=== PATIENT | female | born 1950 | race Caucasian/White ===

== ENCOUNTER 2023-06-28 05:47 | Day surgery (SDC) | payer MEDICARE, OTHER ==
[~2023-06-28] VITALS: Ht 170.2 cm; Wt 128.0 kg
[2023-06-28] VITALS (17 sets, daily range): BP systolic 85–147; BP diastolic 49–83
[~2023-06-28 05:47] MED LIST: ATOR20 PO; CO Q10100 MG PO; Calcium Carbon500 MG PO; DOXE50 PO; EUTHYROX50 MCG PO; HYDCHL25 PO; KRILL OIL500 MG PO; LOSHYD; MELO7.5; METR59TL TOP; MULVITA PO; NASACORT10.8 ML; OMEP20ER PO; PRED20 PO; TELM40 PO; VITAMIN D310 MC4 PO; Vitamin B Comple1 EA PO
[2023-06-28] MEDS ORDERED: Chlorhexidine Mouth Care 15 ML UDC MT SCH (06:30)
[2023-06-28] MEDS ORDERED: OxyCODONE HCL 10 MG TABCR PO SCH (06:30)
[2023-06-28] MEDS ORDERED: Ropivacaine 0.5% HCl/Pf 123.125 MG,EPINEPHrine HCL 0.25 MG,Ketorolac Tromethamine 15 MG... INFIL SCH (06:30)
[2023-06-28] MEDS ORDERED: Lactated Ringer's 1,000 ML IV SCH ×2 (06:30→08:15)
[2023-06-28] MEDS ORDERED: Acetaminophen 500 MG Tab PO SCH ×2 (06:30→16:00)
[2023-06-28] MEDS ORDERED: CeFAZolin Sodium 3,000 MG in NS 100 ML IV SCH (06:30)
[2023-06-28] MEDS ORDERED: Tranexamic Acid 100 ML IV SCH (06:38)
[2023-06-28] MEDS ORDERED: Sodium Phosphate 10 MM in Dextrose 5% 250 ML IV STA (06:40)
--- NOTE | 2023-06-28 06:54 | NUR ---
Wheelchaired into Day Surgery. History, Chart, Medications and Allergies reviewed before start of procedure. Pre-Op teaching done. Pt verbalizes understanding.
[2023-06-28] MEDS ORDERED: FentaNYL Citrate 50 MCG/ML 2 ML Injection ONE (07:13)
[2023-06-28] MEDS ORDERED: propofoL 60 ML IV ONE (07:13)
[2023-06-28] MEDS ORDERED: Promethazine HCl 25 MG Tab PO PRN (08:10)
[2023-06-28] MEDS ORDERED: HYDROmorphone HCl/Pf 1MG SYR IV PRN (08:10)
[2023-06-28] MEDS ORDERED: Bisacodyl 10 MG Supp PR PRN (08:10)
[2023-06-28] MEDS ORDERED: DiphenhydrAMINE HCL 25 MG Cap PO PRN (08:10)
[2023-06-28] MEDS ORDERED: Ondansetron HCl 2 MG / ML 2ML Vial IV PRN (08:15)
[2023-06-28] MEDS ORDERED: Magnesium Hydroxide Conc 10 ML UDC PO PRN (08:15)
[2023-06-28] MEDS ORDERED: OxyCODONE HCL 5 MG TAB PO PRN ×2 (08:15)
[2023-06-28] MEDS ORDERED: Metoclopramide HCl 5MG / ML 2ML Vial IV PRN (08:15)
[2023-06-28] MEDS ORDERED: propofoL 40 ML IV ONE (08:31)
[2023-06-28] MEDS ORDERED: ePHEDrine Sulfate 50 MG/ML 1ML Injection ONE (08:41)
[2023-06-28] MEDS ORDERED: Multivitamins 1 Tab PO SCH (09:00)
[2023-06-28] MEDS ORDERED: Ondansetron HCl 2 MG / ML 2ML Vial ONE (09:16)
[2023-06-28] MEDS ORDERED: Dexamethasone Sod Phos 10 MG/ML 1ML VIAL ONE (09:16)
[2023-06-28] MEDS ORDERED: Phenylephrine HCl 100 MCG/ML-NS 10MLSYR (1MG/10ML) ONE (09:16)
--- NOTE | 2023-06-28 10:30 | NUR ---
ARRIVAL TO UNIT. PT ARRIVED TO THE ROOM FROM PACU AT APPROXIMATELY 1025. UPON ARRIVAL PT DENIED PAIN, SHE WAS ABLE TO MOVE HER BLE BUT REPORTED DECREASED SENSATION R/T SPINAL ANESTHESIA. CALL LIGHT PLACED WITHIN REACH.
[2023-06-28] MEDS ORDERED: Ketorolac Tromethamine 15mg Vial IV SCH (12:00)
--- NOTE | 2023-06-28 13:30 | NUR ---
BEDSIDE REPORT GIVEN TO LOI BREAUX. PT ALERT AND ORIENTED DURING REPORT. PT RATED PAIN AT 4/10 AND STATED PAIN WAS TOLERABLE. PT TOLERATING PO. CALL LIGHT WITHIN REACH.
[2023-06-28] MEDS ORDERED: CeFAZolin Sodium 2,000 MG in NS 100 ML IV SCH (15:40)
--- NOTE | 2023-06-28 18:53 | NUR ---
SHIFT SUMMARY PT A&OX4, VERY PLEASANT. POD 0, LTK, AQUACELL C/D/I, POLAR PACK IN PLACE, PT UP AMB IN [facility] W/ THERAPY AND STAFF. AMB TO BATHROOM W/ USE OF GB AND FWW, TOLERATING WELL. PT REPORTS SON TO STAY W/ HER FOR 2 WEEKS IF NEEDED. PT TOLERATING OXY X2 PRN FOR PAIN. CALL LIGHT W/IN REACH. NO ACUTE CHANGES THIS SHIFT.
[2023-06-28] MEDS ORDERED: Doxepin HCL 50 MG CAP PO SCH (21:00)
[2023-06-28] MEDS ORDERED: Cholecalciferol 1000 Unit Tablet (=25MCG) PO SCH (21:00)
[2023-06-28] MEDS ORDERED: Atorvastatin 10 MG Tab PO SCH (21:00)
[2023-06-28] MEDS ORDERED: Docusate Sodium 100 MG Cap PO SCH (21:00)
[2023-06-28] MEDS ORDERED: Doxepin HCL 25 MG CAP PO SCH (21:00)
[2023-06-29 04:51] LABS: BASOPHILS ABSOLUTE AUTO 0.03 K/mm3 (0.00-0.23); BASOPHILS PERCENT AUTO 0 % (0-2); EOSINOPHILS PERCENT AUTO 0 % (0-6); Hematocrit 35.1 % (33.0-51.0); Hemoglobin 11.5 g/dL (11.5-16.0); IMMATURE GRAN ABSOLUTE AUTO 0.08 K/mm3 (0.00-0.10); IMMATURE GRAN PERCENT AUTO 1 % (0-1); LYMPHOCYTES ABSOLUTE AUTO 1.02 K/mm3 (0.84-5.20); LYMPHOCYTES PERCENT AUTO 6 % (21-46); MONOCYTES ABSOLUTE AUTO 1.31 K/mm3 (0.16-1.47); MONOCYTES PERCENT AUTO 8 % (4-13); Mean Corpuscular HGB 27.3 pg (26.0-34.0); Mean Corpuscular HGB Conc 32.8 g/dL (31.5-36.5); Mean Corpuscular Volume 83 fL (80-100); Mean Platelet Volume 10.9 fL (9.1-12.4); NEUTROPHILS ABSOLUTE AUTO 14.31 K/mm3 (1.96-9.15); NEUTROPHILS PERCENT AUTO 85 % (41-73); Platelet Count 206 K/mm3 (150-400); RDW Coefficient Variation 14.6 % (11.7-14.2); RDW Standard Deviation 43.8 fL (35.1-46.3); Red Blood Cell Count 4.21 M/mm3 (3.80-5.20); White Blood Cell Count 16.75 K/mm3 (4.00-11.30)
[2023-06-29 05:06] VITALS: BP 124/70
--- NOTE | 2023-06-29 05:12 | NUR ---
SHIFT SUMMARY POD1 L TKA. AQUACEL REMAINS C/D/I. SENSATION AND CIRCULATION REMAIN INTACT IN LLE. VSS. PT SLEPT ON AND OFF T/O THE NIGHT. AMBULATED TO THE BATHROOM MULTIPLE TIMES W/MIN ASSIST. TOLLERATING PO INTAKE W/O N/V. PAIN IS MANAGED WITH OXY AND SCHEDULED. PLAN FOR PT TO WORK WITH PT AND D/C HOME TODAY.
[2023-06-29 05:18] LABS: Bun/Creatinine Ratio 22.1 (12.0-20.0); Calcium, Blood 9.6 mg/dL (8.5-10.1); Creatinine, Blood 1.13 mg/dL (0.40-1.00); Potassium, Blood 4.3 mmol/L (3.5-5.5)
[2023-06-29] MEDS ORDERED: Omeprazole 20 MG CapCR PO SCH (06:00)
[2023-06-29] MEDS ORDERED: Levothyroxine Sodium 0.05 MG Tab PO SCH (06:00)
[2023-06-29 07:27] VITALS: BP 120/63
[2023-06-29] MEDS ORDERED: Losartan Potassium 50 MG Tab PO SCH (09:00)
[2023-06-29] MEDS ORDERED: HydroCHLOROthiazide 25 mg Tab PO SCH (09:00)
[2023-06-29] MEDS ORDERED: Aspirin 81 MG Chew PO SCH (09:00)
[2023-06-29] MEDS ORDERED: Vitamin B Complex 1 EA Softgel PO SCH (09:00)
[2023-06-29] MEDS ORDERED: METRONIDAZOLE 0.75% TOP PRN (09:00)
[2023-06-29] MEDS ORDERED: COENZYME Q10 300 MG PO SCH (09:00)
[2023-06-29] MEDS ORDERED: Fluticasone 0.05% Nasal Spray SCH (09:00)
[2023-06-29] MEDS ORDERED: Calcium Carbonate 500 MG Tab Chew PO SCH (09:00)
--- NOTE | 2023-06-29 13:11 | NUR ---
DISCHARGE DISCHARGE INSTRUCTIONS REVIEWED AND GIVEN. QUESTIONS ANSWERED. PERIPHERAL IV TO RIGHT FOREARM REMOVED. PATIENT BELONGINGS GIVEN TO SON. PATIENT ASSISTED UP TO WHEELCHAIR STAND BY ASSIST. OUT OF ROOM TO VEHICLE VIA WHEELCHAIR. TRANSFERRED FROM WHEELCHAIR TO VEHICLE WITH STAND BY ASSIST. NO DISTRESS NOTED.
== END 2023-06-29 12:45 | disposition home or self-care (01) ==
LOC: ORSCMMR 05:47 → ORD 07:30 → ORSCMMR 07:30 → SURS 10:29 → ORSCMMR 06-29 12:45
PROVIDERS: Orthopaedic Surgery
PROC: 0SRD0JA Replacement of Left Knee Joint with Synthetic Substitute, Uncemented, Open Approach (ICD-10-PCS; principal; 2023-06-28 07:30)
DX: M17.12 Unilateral primary osteoarthritis, left knee (principal); I10 Essential (primary) hypertension; E78.5 Hyperlipidemia, unspecified; E03.9 Hypothyroidism, unspecified; K76.0 Fatty (change of) liver, not elsewhere classified; Z79.899 Other long term (current) drug therapy; E66.01 Morbid (severe) obesity due to excess calories; Z68.41 Body mass index [BMI] 40.0-44.9, adult; G47.33 Obstructive sleep apnea (adult) (pediatric)
CPT/HCPCS: 36415; 73560-LT; 80048; 82947; 85025; 94762; 97110; 97116; 97116-CQ; 97162; 97530; A9270; C1776; J0171; J0690; J0735; J1100; J1885; J2371; J2405; J2704; J2795; J3010; J7060; J7120